=== PATIENT | female | born 1995 | race Caucasian/White ===

== ENCOUNTER 2020-12-03 15:33 | Day surgery (SDC) | payer OTHER ==
[2020-12-03 16:08] VITALS: BMI 34.7
[2020-12-03] MEDS ORDERED: hydrALAZINE 20 MG/ML VIAL SLOW IVP PRN (16:37)
== END 2020-12-03 16:45 | disposition home health service (06) ==
LOC: CSHLD/OP 15:33
PROVIDERS: ATTEND Obstetrics & Gynecology
DX: O36.8120 Decreased fetal movements, second trimester, not applicable or unspecified (principal); Z3A.23 23 weeks gestation of pregnancy; Z79.899 Other long term (current) drug therapy
CPT/HCPCS: 99282; C9113; J2405

== ENCOUNTER 2021-02-13 21:22 | Day surgery (SDC) | payer OTHER ==
[2021-02-13 21:42] VITALS: BMI 33.8
[2021-02-13] MEDS ORDERED: hydrALAZINE 20 MG/ML VIAL SLOW IVP PRN (22:59)
== END 2021-02-13 23:10 | disposition home or self-care (01) ==
LOC: CSHLD/OP 21:22
PROVIDERS: ATTEND Advanced Practice Midwife
DX: O36.8130 Decreased fetal movements, third trimester, not applicable or unspecified (principal); O26.893 Other specified pregnancy related conditions, third trimester; R10.30 Lower abdominal pain, unspecified; Z3A.33 33 weeks gestation of pregnancy; Z91.018 Allergy to other foods
CPT/HCPCS: 76819

== ENCOUNTER 2021-02-21 12:36 | Day surgery (SDC) | payer OTHER ==
[2021-02-21] MEDS ORDERED: Betamet Acet/Betamet Na Ph 30 MG/5 ML VIAL ONE (14:59)
[2021-02-21] MEDS ORDERED: hydrALAZINE 20 MG/ML VIAL SLOW IVP PRN (15:36)
[2021-02-21] MEDS ORDERED: Betamet Acet/Betamet Na Ph 30 MG/5 ML VIAL IM SCH (15:45)
== END 2021-02-21 15:18 | disposition home or self-care (01) ==
LOC: CSHLD/OP 12:36
PROVIDERS: ATTEND Obstetrics & Gynecology
DX: O47.03 False labor before 37 completed weeks of gestation, third trimester (principal); O36.1930 Maternal care for other isoimmunization, third trimester, not applicable or unspecified; Z3A.34 34 weeks gestation of pregnancy; Z79.82 Long term (current) use of aspirin; Z79.899 Other long term (current) drug therapy; Z91.018 Allergy to other foods
CPT/HCPCS: 99283; J0702

== ENCOUNTER 2021-02-22 15:15 | Day surgery (SDC) | payer OTHER ==
[2021-02-22] MEDS ORDERED: Betamet Acet/Betamet Na Ph 30 MG/5 ML VIAL IM SCH (15:45)
== END 2021-02-22 16:42 | disposition home or self-care (01) ==
LOC: CSHLD/OP 15:15
PROVIDERS: ATTEND Emergency Medicine
DX: Z29.8 Encounter for other specified prophylactic measures (principal); Z91.018 Allergy to other foods
CPT/HCPCS: 87081; J0702

== ENCOUNTER 2021-02-23 10:28 | Day surgery (SDC) | payer OTHER ==
[2021-02-23 11:05] VITALS: BMI 34.0
[2021-02-23] MEDS ORDERED: hydrALAZINE 20 MG/ML VIAL SLOW IVP PRN (11:48)
[2021-02-23] MEDS ORDERED: Lactated Ringer's 1,000 ML IV SCH (12:00)
== END 2021-02-23 13:45 | disposition home health service (06) ==
LOC: CSHLD/OP 10:28
PROVIDERS: ATTEND Obstetrics & Gynecology
DX: O47.03 False labor before 37 completed weeks of gestation, third trimester (principal); Z3A.35 35 weeks gestation of pregnancy; Z87.59 Personal history of other complications of pregnancy, childbirth and the puerperium; Z79.899 Other long term (current) drug therapy; Z91.018 Allergy to other foods
CPT/HCPCS: 96360; 99283

== ENCOUNTER 2021-02-25 20:34 | Inpatient (IN) | payer OTHER ==
[2021-02-25] MEDS ORDERED: hydrALAZINE 20 MG/ML VIAL SLOW IVP PRN ×2 (21:02→21:13)
[2021-02-25 21:13] VITALS: BMI 34.0
[2021-02-25] MEDS ORDERED: Lidocaine 1% (PF) 30 ML VIAL SC PRN (21:13)
[2021-02-25] MEDS ORDERED: Ibuprofen 800 MG TAB PO PRN (21:13)
[2021-02-25] MEDS ORDERED: Acetaminophen 500 MG TAB PO PRN (21:13)
[2021-02-25] MEDS ORDERED: Carboprost 250 MCG/ML AMP IM PRN (21:13)
[2021-02-25] MEDS ORDERED: HYDROcodone/Acetaminophen 5/325 mg Tablet PO PRN ×2 (21:13)
[2021-02-25] MEDS ORDERED: Diphenoxylate HCl/Atropine Tablet PO PRN ×2 (21:13)
[2021-02-25] MEDS ORDERED: Ondansetron PF 4 MG/2 ML Vial IVP PRN (21:13)
[2021-02-25] MEDS ORDERED: Butorphanol Tartrate 1 MG/ML VIAL SLOW IVP PRN (21:13)
[2021-02-25] MEDS ORDERED: Promethazine HCl 25 MG/ML VIAL IM PRN (21:13)
[2021-02-25] MEDS ORDERED: Misoprostol 200 MCG TAB PR PRN (21:13)
[2021-02-25] MEDS ORDERED: Methylergonovine 0.2 MG/ML VIAL IM PRN (21:13)
[2021-02-25] MEDS ORDERED: Lactated Ringer's 1,000 ML IV SCH (21:15)
[2021-02-25] MEDS ORDERED: Penicillin G Potassium 5 MILL.UNITS in Sodium Chloride 0.9% 100 ML IVPB SCH (21:45)
[2021-02-25 22:21] LABS: Hemoglobin 9.3 g/dL (12.0-15.5); Mean Corpuscular HGB CONC 30.5 g/dL (32.0-36.0); Mean Corpuscular Hemoglobin 24.7 pg (27.0-33.0); Mean Corpuscular Volume 80.9 fl (81.6-98.3); RBC Distribution Width 15.2 % (11.5-14.5); Red Blood Cell (RBC) Count 3.77 10x6/uL (3.90-5.03)
[2021-02-25 22:22] LABS: Platelet Count 216 10x3/uL (150-450); White Blood Cell (WBC) Count 11.6 10x3/uL (3.5-10.5)
[2021-02-25 22:50] LABS: Syphilis Antibody Nonreactive (Nonreactive); Syphilis Antibody Index 0.03 S/CO (<1.00 Non-Reactive)
[2021-02-25 22:55] LABS: Hep B Surf Ag Non-Reactive S/CO (NonReactive)
[2021-02-25 23:06] LABS: HBSAg Index 0.19 S/CO (0-0.99)
[2021-02-25 23:32] LABS: SARS-CoV-2 NAA Rapid Test Not Detected (NotDetected)
[2021-02-26] MEDS: Penicillin G 2.5 MILL.units 2.5 MILL.UNITS in Premix Bag 1 BAG IVPB SCH ×2 (02:50→17:33)
[2021-02-26] MEDS: NS w/ Oxytocin 30 units 500 ML IV SCH ×2 (06:00→06:46)
[2021-02-26] MEDS ORDERED: Methylergonovine 0.2 MG/ML VIAL IM PRN (08:48)
[2021-02-26] MEDS ORDERED: NS w/ Oxytocin 30 units 500 ML IV SCH (08:48)
[2021-02-26] MEDS ORDERED: Lanolin Ointment 7 GM TUBE TOP PRN (08:48)
[2021-02-26] MEDS ORDERED: Milk Of Magnesia 30 ML UDCUP PO PRN (08:48)
[2021-02-26] MEDS ORDERED: Preparation H Ointment 28 GM TUBE PR PRN (08:48)
[2021-02-26] MEDS ORDERED: Misoprostol 200 MCG TAB VAG PRN (08:48)
[2021-02-26] MEDS ORDERED: Bisacodyl 10 MG SUPP PR PRN (08:48)
[2021-02-26] MEDS ORDERED: Benzocaine-Menthol 82.5 ML CAN TOP PRN (08:48)
[2021-02-26] MEDS ORDERED: Ondansetron PF 4 MG/2 ML Vial IVP PRN (08:48)
[2021-02-26] MEDS ORDERED: hydrALAZINE 20 MG/ML VIAL SLOW IVP PRN (08:48)
[2021-02-26] MEDS ORDERED: Boostrix 0.5 ML (Tdap) VIAL IM ONE (08:48)
[2021-02-26] MEDS ORDERED: Ferrous Sulfate 325 MG TAB PO SCH (09:30)
[2021-02-26] MEDS: Docusate Calcium (SURFAK) 240 MG CAP PO SCH ×2 (10:19→21:15)
[2021-02-26] MEDS: Prenatal Vitamin 1 TAB PO SCH (10:19)
[2021-02-26] MEDS: Ibuprofen 800 MG TAB PO SCH ×2 (13:26→21:15)
[2021-02-26] MEDS: Ferrous Sulfate 325 MG TAB PO SCH (17:25)
[2021-02-27] MEDS: Ibuprofen 800 MG TAB PO SCH ×3 (04:50→22:18)
[2021-02-27 05:26] LABS: Hemoglobin 9.6 g/dL (12.0-15.5); Mean Corpuscular HGB CONC 30.9 g/dL (32.0-36.0); Mean Corpuscular Hemoglobin 25.1 pg (27.0-33.0); Mean Corpuscular Volume 81.2 fl (81.6-98.3); Mean Platelet Volume 14.5 fl (7.4-10.4); RBC Distribution Width 15.3 % (11.5-14.5); Red Blood Cell (RBC) Count 3.83 10x6/uL (3.90-5.03); White Blood Cell (WBC) Count 18.1 10x3/uL (3.5-10.5)
[2021-02-27 05:28] LABS: Platelet Count 225 10x3/uL (150-450)
[2021-02-27] MEDS: Ferrous Sulfate 325 MG TAB PO SCH ×2 (09:56→22:18)
[2021-02-27] MEDS: Prenatal Vitamin 1 TAB PO SCH (09:57)
[2021-02-27] MEDS: Docusate Calcium (SURFAK) 240 MG CAP PO SCH ×2 (09:57→22:19)
[2021-02-28] MEDS: Ibuprofen 800 MG TAB PO SCH ×2 (05:04→14:59)
[2021-02-28 07:49] VITALS: BP 101/55; TEMP 98.1
[2021-02-28] MEDS: Prenatal Vitamin 1 TAB PO SCH (08:35)
[2021-02-28] MEDS: Ferrous Sulfate 325 MG TAB PO SCH ×2 (08:35→17:01)
[2021-02-28] MEDS: Docusate Calcium (SURFAK) 240 MG CAP PO SCH (08:35)
== END 2021-02-28 17:30 | disposition home or self-care (01) | DRG 805 ==
LOC: CSHLD/OP 20:34 → CSHLD 20:35 → CSHPP 02-26 08:30
PROVIDERS: ADMIT Obstetrics & Gynecology; ATTEND Obstetrics & Gynecology
PROC: 10E0XZZ Delivery of Products of Conception, External Approach (ICD-10-PCS; principal; 2021-02-28)
DX: O42.013 Preterm premature rupture of membranes, onset of labor within 24 hours of rupture, third trimester (principal); O60.14X0 Preterm labor third trimester with preterm delivery third trimester, not applicable or unspecified; Z37.0 Single live birth; Z3A.35 35 weeks gestation of pregnancy; Z20.822 Contact with and (suspected) exposure to COVID-19
CPT/HCPCS: 36415; 85027; 86780; 86850; 86870; 86900; 86901; 86922; 87340; 99285; J2540; J2590; J3490; U0002

== ENCOUNTER 2021-03-16 02:25 | Emergency (ER) | payer OTHER ==
[2021-03-16] MEDS ORDERED: Ketorolac Tromethamine 30 MG/ML VIAL ONE (03:20)
[2021-03-16 03:30] LABS: #Basophils 0.1 10x3/uL (0.0-0.2); #Eosinphils 0.3 10x3/uL (0.0-0.5); #Neutrophils 10.8 10x3/uL (1.5-8.4); %Basophils 0.3 % (0.0-2.0); %Eosinophils 1.7 % (0.0-6.0); %Lymphocytes 21.8 % (18.0-47.0); %Monocytes 6.5 % (0.0-10.0); %Neutrophils 69.3 % (40.0-75.0); Hemoglobin 10.9 g/dL (12.0-15.5); Mean Corpuscular Hemoglobin 24.7 pg (27.0-33.0); Mean Corpuscular Volume 82.1 fl (81.6-98.3); Mean Platelet Volume 13.3 fl (7.4-10.4); Platelet Count 267 10x3/uL (150-450); RBC Distribution Width 16.7 % (11.5-14.5); Red Blood Cell (RBC) Count 4.42 10x6/uL (3.90-5.03); White Blood Cell (WBC) Count 15.6 10x3/uL (3.5-10.5)
[2021-03-16 03:38] LABS: ALT (SGPT) 30 U/L (8-55); AST (SGOT) 24 U/L (5-34); Alkaline Phosphatase 108 U/L (40-110); Anion Gap 16 mmol/L (10-20); BUN (Urea Nitrogen) 19 mg/dL (7.0-18.7); Bilirubin, Total 0.3 mg/dL (0.2-1.2); Calc. Creatinine Clearance 0 mL/min (70-130); Calcium 9.2 mg/dL (7.8-10.44); Carbon Dioxide 24 mmol/L (22-29); Chloride 104 mmol/L (98-107); Globulin 3.7 g/dL (2.4-3.5); Glucose 124 mg/dL (70-105); Lipase 22 U/L (8-78); Potassium 3.5 mmol/L (3.5-5.1); Protein, Total 7.7 g/dL (6.0-8.3); Sodium 140 mmol/L (136-145)
[2021-03-16 04:21] LABS: Bilirubin Neg (Negative); Blood, Urine 250 (Negative); Glucose, Urine (Dipstick) Normal (Negative); Ketone, Urine 5 mg/dL (Negative); Leukocyte 100 (Negative); Nitrite Negative (Negative); Protein, Urine (Dipstick) 15 mg/dl (Neg-Trace); Specific Gravity, Urine 1.025 (1.002-1.036); Urobilinogen Normal mg/dL (Less than 2)
[2021-03-16 04:22] LABS: Clarity Hazy (Clear)
[2021-03-16 04:31] LABS: Bacteria/HPF 2+ HPF (None Seen); RBC/HPF 21-50 HPF (0-3); Squamous Epithelial 0-3 HPF (0-3)
[2021-03-16 04:32] LABS: Mucous/LPF 3+ LPF (<2+)
== END 2021-03-16 05:45 | disposition home or self-care (01) ==
LOC: CSHERS 02:25
DX: K80.20 Calculus of gallbladder without cholecystitis without obstruction (principal); N39.0 Urinary tract infection, site not specified; Z87.891 Personal history of nicotine dependence
CPT/HCPCS: 74177; 76705; 80053; 81003; 81015; 83690; 85025; 96374; J1885

== ENCOUNTER → 2021-10-18 | Emergency (ER) | payer OTHER ==
[~2021-10-18] MED LIST: Bupivacaine PF 0.5% 30 ML VIAL ONE; Dexamethasone 4 mg/ml Vial ONE; EPINEPHrine 1 MG/ML AMP ONE; Fentanyl 100 MCG/2 ML VIAL ONE; Glycopyrrolate 0.2 MG/ML 5 ML SYRINGE ONE; Ketorolac Tromethamine 30 MG/ML VIAL ONE; Lidocaine 1% PF 5 ML VIAL ONE; Midazolam HCl 2 mg/2 ml Vial ONE; Morphine 4 MG/ML VIAL ONE; Ondansetron PF 4 MG/2 ML Vial ONE; PROPOFOL 20 ML ONE; Piperacillin/Tazobactam 4.5 GM VIAL ONE; Rocuronium Bromide 10 MG/ML (10ML VIAL) ONE; SUGAMMADEX SODIUM 200 MG/2 ML VIAL ONE
[2021-10-18 06:38] LABS: #Basophils 0.1 10x3/uL (0.0-0.2); #Eosinphils 0.2 10x3/uL (0.0-0.5); #Monocytes 1.2 10x3/uL (0.0-1.1); #Neutrophils 12.5 10x3/uL (1.5-8.4); %Basophils 0.5 % (0.0-2.0); %Eosinophils 1.1 % (0.0-6.0); %Lymphocytes 18.7 % (18.0-47.0); %Monocytes 6.8 % (0.0-10.0); %Neutrophils 72.5 % (40.0-75.0); Hemoglobin 12.3 g/dL (12.0-15.5); Mean Corpuscular HGB CONC 31.7 g/dL (32.0-36.0); Mean Corpuscular Hemoglobin 26.3 pg (27.0-33.0); Mean Corpuscular Volume 83.1 fl (81.6-98.3); Mean Platelet Volume 12.7 fl (7.4-10.4); Platelet Count 306 10x3/uL (150-450); RBC Distribution Width 15.3 % (11.5-14.5); Red Blood Cell (RBC) Count 4.67 10x6/uL (3.90-5.03); White Blood Cell (WBC) Count 17.1 10x3/uL (3.5-10.5)
[2021-10-18 06:46] LABS: BHCG - Serum Negative (NEGATIVE); Pregs Control Background? CLEAR/WHITE (CLR/WHITE); Pregs Control Bar Appear? YES (CONTROL BAR)
[2021-10-18 06:55] LABS: ALT (SGPT) 83 U/L (8-55); AST (SGOT) 126 U/L (5-34); Albumin 3.9 g/dL (3.5-5.0); Alkaline Phosphatase 104 U/L (40-110); Anion Gap 17 mmol/L (10-20); BUN (Urea Nitrogen) 11 mg/dL (7.0-18.7); Bilirubin, Total 0.4 mg/dL (0.2-1.2); Calc. Creatinine Clearance 0 mL/min (70-130); Calcium 9.3 mg/dL (7.8-10.44); Carbon Dioxide 25 mmol/L (22-29); Chloride 102 mmol/L (98-107); Estimated GFR 122; Glucose 148 mg/dL (70-105); Lipase 20 U/L (8-78); Potassium 4.1 mmol/L (3.5-5.1); Protein, Total 7.9 g/dL (6.0-8.3); Sodium 140 mmol/L (136-145)
[2021-10-18 09:15] LABS: SARS-CoV-2 NAA Rapid Test Not Detected (NotDetected)
== END | disposition home or self-care (01) ==
LOC: CSHERS 05:57
PROC: 0FT44ZZ Resection of Gallbladder, Percutaneous Endoscopic Approach (ICD-10-PCS; principal; 2021-10-18)
DX: K80.20 Calculus of gallbladder without cholecystitis without obstruction (principal); R94.5 Abnormal results of liver function studies; D72.829 Elevated white blood cell count, unspecified; Z20.822 Contact with and (suspected) exposure to COVID-19; Z87.891 Personal history of nicotine dependence
CPT/HCPCS: 76705; 80053; 83690; 84703; 85025; 88304; 96374; 96375; C1713; J0171; J1100; J1885; J2250; J2270; J2405; J2543; J2704; J3010; S0020; U0002

== ENCOUNTER 2021-10-27 11:21 | Emergency (ER) | payer OTHER ==
[2021-10-27 12:17] LABS: BHCG - Serum Negative (NEGATIVE); Pregs Control Bar Appear? YES (CONTROL BAR)
[2021-10-27 12:18] LABS: Pregs Control Background? CLEAR/WHITE (CLR/WHITE)
[2021-10-27 12:20] LABS: #Eosinphils 0.4 10x3/uL (0.0-0.5); #Monocytes 0.8 10x3/uL (0.0-1.1); #Neutrophils 9.2 10x3/uL (1.5-8.4); %Basophils 0.3 % (0.0-2.0); %Eosinophils 3.3 % (0.0-6.0); %Lymphocytes 18.8 % (18.0-47.0); %Monocytes 6.3 % (0.0-10.0); Mean Corpuscular HGB CONC 31.9 g/dL (32.0-36.0); Mean Corpuscular Hemoglobin 26.6 pg (27.0-33.0); Mean Corpuscular Volume 83.4 fl (81.6-98.3); Mean Platelet Volume 13.6 fl (7.4-10.4); RBC Distribution Width 17.2 % (11.5-14.5); Red Blood Cell (RBC) Count 4.51 10x6/uL (3.90-5.03)
[2021-10-27 12:22] LABS: Platelet Count 268 10x3/uL (150-450)
[2021-10-27 12:25] LABS: ALT (SGPT) 323 U/L (8-55); AST (SGOT) 122 U/L (5-34); Alkaline Phosphatase 267 U/L (40-110); Anion Gap 13 mmol/L (10-20); BUN (Urea Nitrogen) 7 mg/dL (7.0-18.7); Bilirubin, Total 2.6 mg/dL (0.2-1.2); Calc. Creatinine Clearance 0 mL/min (70-130); Calcium 7.1 mg/dL (7.8-10.44); Carbon Dioxide 23 mmol/L (22-29); Chloride 96 mmol/L (98-107); Estimated GFR 125; Globulin 4.3 g/dL (2.4-3.5); Glucose 158 mg/dL (70-105); Lipase 11 U/L (8-78); Potassium 3.6 mmol/L (3.5-5.1); Protein, Total 8.3 g/dL (6.0-8.3); Sodium 128 mmol/L (136-145)
[2021-10-27 13:03] LABS: Bilirubin Neg (Negative); Blood, Urine Negative (Negative); Clarity Clear (Clear); Glucose, Urine (Dipstick) Normal (Negative); Ketone, Urine Negative (Negative); Leukocyte 25 (Negative); Nitrite Negative (Negative); Protein, Urine (Dipstick) Negative (Neg-Trace); Specific Gravity, Urine 1.005 (1.002-1.036); Urobilinogen Normal mg/dL (Less than 2)
[2021-10-27] MEDS ORDERED: Iopamidol 370 76% 100 ML VIAL ONE (13:15)
[2021-10-27 13:39] LABS: RBC/HPF 0-3 HPF (0-3)
[2021-10-27 13:41] LABS: Bacteria/HPF Rare-Few HPF (None Seen); Squamous Epithelial 0-3 HPF (0-3)
[2021-10-27 13:42] LABS: Mucous/LPF Rare LPF (<2+)
== END 2021-10-27 17:50 | disposition home or self-care (01) ==
LOC: CSHERS 11:21
DX: R10.13 Epigastric pain (principal); Z87.891 Personal history of nicotine dependence
CPT/HCPCS: 36415; 71275; 74177; 76705; 80053; 81003; 81015; 83605; 83690; 84484; 84703; 85025; 85379; 87040; 93005; 94760; 96374; 96375; J2405; J3010; Q9967